=== PATIENT | female | born 1955 | race Caucasian/White ===

== ENCOUNTER 2018-09-12 13:09 | Emergency (ER) | payer OTHER ==
[2018-09-12 13:31] VITALS: BMI 25.0
--- NOTE | 2018-09-12 14:40 | ED PDOC ---
Arrival/HPI - General Chief Complaint: Hip Pain Time Seen by Provider: 09/12/18 13:11 Historian: Patient - History of Present Illness Narrative History of Present Illness (Text): 09/12/18 14:38 62 year old F with no significant pmh presents with chief complaint of left lower back pain radiating to abdomen w/ chills since last night. Patient endorses taking Advil which failed to alleviate pain. Patient denies any fevers, chills, urinating problems, headache, dizziness, chest pain, shortness of breath, dyspnea on exertion, cough, nausea, vomiting, diarrhea, neck pain, or any other complaint. Time/Duration: 24 hours Symptom Onset: Sudden Symptom Course: Unchanged Activities at Onset: Light Context: Home Past Medical History - Provider Review Nursing Documentation Reviewed: Yes - Infectious Disease Hx of Infectious Diseases: None - Reproductive Menopause: Yes - Psychiatric Hx Substance Use: No - Surgical History Hx Section: Yes - Anesthesia Hx Anesthesia Reactions: No Hx Malignant Hyperthermia: No Family/Social History - Physician Review Nursing Documentation Reviewed: Yes Family/Social History: Unknown Family HX Smoking Status: Never Smoked Hx Alcohol Use: No Hx Substance Use: No Allergies/Home Meds Allergies/Adverse Reactions: Allergies No Known Allergies Allergy (Unverified 09/12/18 15:00) Review of Systems - Physician Review All systems were reviewed & negative as marked: Yes - Review of Systems Constitutional: Normal Eyes: Normal ENT: Normal Respiratory: Normal Cardiovascular: Normal Gastrointestinal: Abdominal Pain. absent: Diarrhea, Nausea, Vomiting Genitourinary Female: Normal Musculoskeletal: Back Pain. absent: Arthralgias, Myalgias Skin: Normal Neurological: Normal. absent: Headache, Dizziness Endocrine: Normal Hemo/Lymphatic: Normal Psychiatric: Normal Physical Exam Vital Signs Reviewed: Yes Vital Signs Temp Pulse Resp BP Pulse Ox 09/12/18 13:29 99.2 F 73 18 145/84 95 Temperature: Afebrile Blood Pressure: Normal Pulse: Regular Respiratory Rate: Normal Appearance: Positive for: Well-Appearing, Non-Toxic, Comfortable Pain Distress: Mild Mental Status: Positive for: Alert and Oriented X 3 - Systems Exam Head: Present: Atraumatic, Normocephalic Pupils: Present: PERRL Extroacular Muscles: Present: EOMI Conjunctiva: Present: Normal Mouth: Present: Moist Mucous Membranes Neck: Present: Normal Range of Motion Respiratory/Chest: Present: Clear to Auscultation, Good Air Exchange. No: Respiratory Distress, Accessory Muscle Use Cardiovascular: Present: Regular Rate and Rhythm, Normal S1, S2. No: Murmurs Abdomen: Present: Tenderness (left sided groin). No: Distention, Peritoneal Signs Back: Present: CVA Tenderness (left sided) Upper Extremity: Present: Normal Inspection. No: Cyanosis, Edema Lower Extremity: Present: Normal Inspection. No: Edema Neurological: Present: GCS=15, CN II-XII Intact, Speech Normal Skin: Present: Warm, Dry, Normal Color. No: Rashes Psychiatric: Present: Alert, Oriented x 3, Normal Insight, Normal Concentration Medical Decision Making ED Course and Treatment: 09/12/18 14:37 Impression: 62 year old F presents with chief complaint of left lower back pain w/ chills since last night. Plan: --Labs --CT a/p --IVF --Toradol --Valium --Lidoderm --Urinanalysis --Reassess and disposition Prior Visits: Notes and results from previous visits were reviewed. Progress Notes: 09/12/18 16:50 Patient reassessed and feels much better. Urinanalysis shows large blood, but no evidence of leukocyte esterases, bacteria or nitrites. CT a/p reveals 3mm stone present at the UPJ with perinephric stranding and mild hydronephrosis. Patient is updated on findings and advised to increase fluid intake as well as to strain urine for any stones. She is also advised to follow up with a urologist. Opportunities for questions given and answered. Scripts provided. She is stable for discharge. - Lab Interpretations Lab Results: 09/12/18 15:25 09/12/18 15:25 Lab Results 09/12/18 15:25: Urine Color yellow, Urine Appearance Clear, Urine pH 6.0, Ur Specific [place] 1.020, Urine Protein Trace H, Urine Glucose (UA) Negative, Urine Ketones Trace H, Urine Blood Moderate H, Urine Nitrate Negative, Urine Bilirubin Negative, Urine Urobilinogen 0.2, Ur Leukocyte Esterase Negative, Urine RBC 20 - 25 H, Urine WBC 2 - 5, Ur Epithelial Cells 6 - 8 H 09/12/18 15:25: Sodium 138, Potassium 4.8, Chloride 102, Carbon Dioxide 27, Anion Gap 14, BUN 14, Creatinine 1.0, Est GFR ( Amer) > 60, Est GFR (Non- Af Amer) 57, Random Glucose 113 H, Calcium 9.7, Magnesium 1.9, Total Bilirubin 0.7, AST 35, ALT 21, Alkaline Phosphatase 74, Total Protein 8.4 H, Albumin 4.5, Globulin 3.9, Albumin/Globulin Ratio 1.2, Lipase 48 09/12/18 15:25: PT 13.4 H, INR 1.21, APTT 29.7 09/12/18 15:25: WBC 13.7 H, RBC 4.76, Hgb 13.9, Hct 41.9, MCV 88.0, MCH 29.2, MCHC 33.2, RDW 13.2, Plt Count 293, MPV 9.7, Neut % (Auto) 83.2 H, Lymph % (Auto) 11.9 L, [place] % (Auto) 4.5, Eos % (Auto) 0.3 L, Baso % (Auto) 0.1, Lymph # (Auto) 1.6, [place] # (Auto) 0.6, Eos # (Auto) 0.0, Baso # (Auto) 0.02, Absolute Neuts (auto) 11.36 H I have reviewed the lab results: Yes - RAD Interpretation Narrative RAD Interpretations (Text): 09/12/18 16:24 CT Abdomen and Pelvis without intravenous contrast FINDINGS: LOWER THORAX: Unremarkable. LIVER: Unremarkable. No gross lesion or ductal dilatation. GALLBLADDER AND BILE DUCTS: Unremarkable. PANCREAS: Unremarkable. No gross lesion or ductal dilatation. SPLEEN: Unremarkable. ADRENALS: Unremarkable. No mass. KIDNEYS AND URETERS: There is a 3 mm stone in the left UVJ with dilatation of the left ureter and mild hydronephrosis. There is also perinephric stranding on the left. VASCULATURE: Unremarkable. No aortic aneurysm. No aortic atherosclerotic calcification or mural plaque present. BOWEL: Unremarkable. No obstruction. No gross mural thickening. APPENDIX: Unremarkable. Normal appendix. PERITONEUM: Unremarkable. No free fluid. No free air. LYMPH NODES: Unremarkable. No enlarged lymph nodes. BLADDER: Unremarkable. REPRODUCTIVE: Unremarkable. BONES: No acute fracture. OTHER FINDINGS: None. IMPRESSION: There is a 3 mm stone in the left UVJ with dilatation of the left ureter and mild hydronephrosis. There is also perinephric stranding on the left. Associate Counsel: Radiologist - Medication Orders Current Medication Orders: 09/12/18 16:50 Discontinued Medications Diazepam (Valium) 5 mg PO ONCE ONE; Protocol Stop: 09/12/18 16:26 Sodium Chloride (Sodium Chloride 0.9%) 1,000 mls @ 1,000 mls/hr IV .Q1H STA Stop: 09/12/18 15:59 Last Admin: 09/12/18 15:25 Dose: 1,000 mls/hr eMAR Start Stop Document 09/12/18 15:25 SRE (Rec: 09/12/18 15:26 [place] [facility] Intravenous Solution Start Date 09/12/18 Start Time 15:26 End Date 09/12/18 End time 16:30 Total Infusion Time 64 Ketorolac Tromethamine (Toradol) 30 mg IVP STAT STA Stop: 09/12/18 15:01 Last Admin: 09/12/18 15:26 Dose: 30 mg MAR Pain Assessment Document 09/12/18 15:26 SRE (Rec: 09/12/18 15:26 S[place] [facility] Pain Reassessment Is this a pain reassessment? Yes Sleep Is patient sleeping during reassessment? No Presence of Pain Presence of Pain Yes Pain Scale Used Protocol: PSCALES Pain Scale Used Numeric Location Pain Location Body Site Abdomen Description Description Intermittent IVP Administration Document 09/12/18 15:26 SRE (Rec: 09/12/18 15:26 S[place] [facility] Charges for Administration # of IVP Administrations 1 Lidocaine (Lidoderm) 1 ea TD ONCE ONE Stop: 09/12/18 16:25 - Scribe Statement The provider has reviewed the documentation as recorded by the Charly Kerns All medical record entries made by the Supriyaibsharda were at my direction and personally dictated by me. I have reviewed the chart and agree that the record accurately reflects my personal performance of the history, physical exam, medical decision making, and the department course for this patient. I have also personally directed, reviewed, and agree with the discharge instructions and disposition. Disposition/Present on Arrival - Present on Arrival Any Indicators Present on Arrival: No History of DVT/PE: No History of Uncontrolled Diabetes: No Urinary Catheter: No History of Decub. Ulcer: No History Surgical Site Infection Following: None - Disposition Have Diagnosis and Disposition been Completed?: Yes Diagnosis: Renal calculus, left Disposition: HOME/ ROUTINE Disposition Time: 16:56 Patient Plan: Discharge Condition: STABLE Discharge Instructions (ExitCare): Kidney Stones (DC), Renal Colic (DC), How to Strain Your Urine Print Language: YORUBA Additional Instructions: All medical record entries made by the Scribe were at my direction and personally dictated by me. I have reviewed the chart and agree that the record accurately reflects my personal performance of the history, physical exam, m edical decision making, and the department course for this patient. I have also personally directed, reviewed, and agree with the discharge instructions and disposition. Remember to increase your fluid intake and to strain your urine Take pain medications as prescribed Try to schedule an appointment with your urologist Prescriptions: Diazepam [Valium] 2 mg PO Q6H #6 tablet Lidocaine 5% [Lidoderm] 1 ea TD Q12 #6 patch Naproxen 500 mg PO BID #6 tab Referrals: Charlie Mojica MD [Staff Provider] - Follow up with primary Forms: [facility] [facility] (Welsh), WORK NOTE
[2018-09-12] MEDS ORDERED: Sodium Chloride 0.9% 1,000 ML IV STA (15:00)
[2018-09-12 15:35] LABS: BASO # 0.02 K/mm3 (0.0-2.0); BASO % 0.1 % (0.0-3.0); EOS % 0.3 % (1.5-5.0); HEMOGLOBIN 13.9 g/dL (12.0-16.0); LYMPH # 1.6 (1.2-3.4); LYMPH % 11.9 % (22.0-35.0); MEAN CORPUSCULAR HEMOGLOBIN 29.2 pg (25.0-35.0); MEAN CORPUSCULAR HGB CONC 33.2 g/dl (31.0-37.0); MEAN PLATELET VOLUME 9.7 fl (7.0-11.0); MONO # 0.6 (0.1-0.6); MONO % 4.5 % (1.0-6.0); RBC 4.76 10^6/uL (3.5-6.1); RED CELL DISTRIBUTION WIDTH 13.2 % (11.5-14.5); URINE BILIRUBIN NEGATIVE (NEGATIVE); URINE BLOOD MODERATE (NEGATIVE); URINE GLUCOSE (UA) NEGATIVE (NEGATIVE); URINE LEUKOCYTE ESTERASE NEGATIVE Leu/uL (NEGATIVE); URINE PROTEIN TRACE mg/dL (<30 mg/dL); URINE UROBILINOGEN 0.2 E.U./dL (<1 E.U./dL); WHITE BLOOD COUNT 13.7 10^3/uL (4.5-11.0)
[2018-09-12 15:39] LABS: INR 1.21; PARTIAL THROMBOPLASTIN TIME 29.7 Seconds (26.9-38.3); PROTHROMBIN TIME 13.4 SECONDS (9.4-12.5)
[2018-09-12 15:44] LABS: ALBUMIN 4.5 g/dL (3.0-4.8); BLOOD UREA NITROGEN 14 mg/dL (7-21); CALCIUM 9.7 mg/dL (8.4-10.5); GFR NON-AFRICAN AMERICAN 57
[2018-09-12 15:45] LABS: ALB/GLOB RATIO 1.2 (1.1-1.8); ALT/SGPT 21 U/L (7-56); AST/SGOT 35 U/L (14-36); LIPASE 48 U/L (23-300)
--- NOTE | 2018-09-12 16:07 | CT ---
Date of service: 09/12/2018 PROCEDURE: CT Abdomen and Pelvis without intravenous contrast HISTORY: left sided flank pain COMPARISON: None. TECHNIQUE: Technique. Contrast dose: Radiation dose: Total exam DLP = 301.54 mGy-cm. This CT exam was performed using one or more of the following dose reduction techniques: Automated exposure control, adjustment of the mA and/or kV according to patient size, and/or use of iterative reconstruction technique. FINDINGS: LOWER THORAX: Unremarkable. LIVER: Unremarkable. No gross lesion or ductal dilatation. GALLBLADDER AND BILE DUCTS: Unremarkable. PANCREAS: Unremarkable. No gross lesion or ductal dilatation. SPLEEN: Unremarkable. ADRENALS: Unremarkable. No mass. KIDNEYS AND URETERS: There is a 3 mm stone in the left UVJ with dilatation of the left ureter and mild hydronephrosis. There is also perinephric stranding on the left. VASCULATURE: Unremarkable. No aortic aneurysm. No aortic atherosclerotic calcification or mural plaque present. BOWEL: Unremarkable. No obstruction. No gross mural thickening. APPENDIX: Unremarkable. Normal appendix. PERITONEUM: Unremarkable. No free fluid. No free air. LYMPH NODES: Unremarkable. No enlarged lymph nodes. BLADDER: Unremarkable. REPRODUCTIVE: Unremarkable. BONES: No acute fracture. OTHER FINDINGS: None. IMPRESSION: There is a 3 mm stone in the left UVJ with dilatation of the left ureter and mild hydronephrosis. There is also perinephric stranding on the left.
[2018-09-12 16:10] LABS: URINE APPEARANCE CLEAR (CLEAR)
[2018-09-12] MEDS ORDERED: Lidocaine 5% Patch TD ONE (16:24)
[2018-09-12 16:31] LABS: URINE RBC 20 - 25 /hpf (0-2)
[2018-09-12 17:20] VITALS: BP 137/69; PULSE 18; RESP 82; TEMP 98; O2SAT 98
== END 2018-09-12 17:24 | disposition home or self-care (01) ==
LOC: ED 13:09
DX: N20.0 Calculus of kidney (principal)
CPT/HCPCS: 74176; 80053; 81001; 83690; 83735; 85025; 85610; 85730; 96361; 96374; 99285; J1885; J7030